=== PATIENT | female | born 1985 | race African-American/Black ===

== ENCOUNTER 2019-03-23 19:37 | Emergency (ER) | payer MEDICAID ==
[~2019-03-23] VITALS: Ht 160 cm; Wt 55.0 kg
[2019-03-23] MEDS ORDERED: SODIUM CHLORIDE 0.9% 1,000 ML IV ONE (20:58)
[2019-03-23] MEDS ORDERED: ONDANSETRON HCL 4MG/2ML INJ IV STA (20:58)
[2019-03-23] MEDS ORDERED: KETOROLAC 30MG/ML VIAL IV ONE (21:15)
[2019-03-23 21:29] LABS: CLARITY URINE CLEAR (CLEAR); COLOR URINE YELLOW (YELLOW); KETONES URINE NEGATIVE (NEGATIVE); LEUKOCYTE ESTERASE URINE TRACE (NEGATIVE); NITRITE URINE NEGATIVE (NEGATIVE); OCCULT BLOOD URINE 2+ (NEGATIVE); PH URINE 7.5 (4.5-8.0); PROTEIN URINE NEGATIVE (NEGATIVE); SPECIFIC GRAVITY URINE 1.012 (1.005-1.030); UROBILINOGEN URINE 0.2 E.U./dL (0.2-1.0)
[2019-03-23 21:33] LABS: BASOPHILS % 0.8 % (0.0-2.0); EOSINOPHILS % 0.4 % (0.0-5.0); HEMATOCRIT. 29.2 % (36.0-48.0); HEMOGLOBIN. 8.9 g/dL (12.0-16.0); LYMPHOCYTES % 16.8 % (20.0-50.0); MEAN CORPUSCULAR HEMOGLOBIN 17.7 pg (28.0-32.0); MEAN CORPUSCULAR VOLUME 58.4 fL (81.0-99.0); MEAN PLATELET VOLUME 8.6 fl (7.4-10.4); MONOCYTES % 4.6 % (2.0-8.0); NEUTROPHILS % 77.4 % (40.0-76.0); PLATELET 238 x1000/uL (130-400); RED CELL DISTRIBUTION WIDTH 20.6 % (11.6-14.6)
[2019-03-23 21:40] LABS: CHLORIDE 106 mEq/L (98-107)
[2019-03-23] MEDS ORDERED: ONDANSETRON 4MG ODT PO ONE (21:45)
[2019-03-23 21:47] LABS: PLATELET ESTIMATE NORMAL
[2019-03-23] MEDS ORDERED: IBUPROFEN 600MG TABLET PO ONE (22:15)
[2019-03-23] MEDS ORDERED: ONDANSETRON 4MG ODT PO NR (22:30)
[2019-03-23] MEDS ORDERED: IBUPROFEN 600MG TABLET PO NR (22:30)
[2019-03-23 22:39] VITALS: BP 132/82
== END 2019-03-23 22:15 | disposition home or self-care (01) ==
LOC: ER 19:37
DX: R10.0 Acute abdomen (principal); R45.1 Restlessness and agitation; F91.8 Other conduct disorders
CPT/HCPCS: 36415; 80053; 81003; 81025; 83690; 85025; 99283; J2405; J7030; Q0162; Z7610